=== PATIENT | male | born 1985 | race Caucasian/White ===

== ENCOUNTER 2021-09-04 10:35 | Emergency (ER) | payer OTHER, SELFPAY ==
[2021-09-04 11:28] VITALS: BP 118/63; PULSE 63; RESP 18; TEMP 36.9; O2SAT 99
--- NOTE | 2021-09-04 12:18 | ED.NAVMDI ---
HPI - Nausea/Vomiting/Diarrhea General Chief complaint: Nausea/Vomiting/Diarrhea Stated complaint: Nausea,Fatigue,Diarrhea Source: patient and RN notes reviewed Limitations: no limitations History of Present Illness HPI Narrative: The vaccinated patient, previously healthy [employer], presents with nausea and diarrhea. Patient is here with other sick family members who have diarrhea; he has had nausea and biweekly loose stools [spouse had it 15 times in 1 day]. No fever, vomiting tenesmus, blood, abdominal pain, weight loss, foreign travel, camping-family pet dog has been diagnosed with Giardia. Symptoms are mild slightly worse eating. Related Data Allergies Allergy/AdvReac Type Severity Reaction Status Date / Time No Known Allergies Allergy Verified 09/04/21 12:15 Review of Systems Review of Systems: General/Constitutional: No weight loss,fever Eyes: N0: Redness,discharge Ears/Nose/Throat: No: Epistaxis,ear discharge Respiratory: Denies: Hemoptysis Gastrointestinal: No Vomiting, Bleeding-rectal Skin: No Lumps, eruption Neurologic: No Focal Weakness,Sz Hematologic: Denies: Petechiae/Purpura Psychiatric: No: Suicida ideationl All Other Systems: Reviewed and Negative PMFSH Comments At time of signature, agree with nursing past medical, surgical, social and family history. There is no relevant family history pertinent to the presenting complaint Exam Narrative: General Appearance: Well appearing, No distress, Conjunctiva clear Ears: External ear normal Nose: Normal nose Mouth/Throat: Normal appearing, Normal lips, Supple Respiratory: Airway patent, No respiratory distress Cardiovascular: RRR Abdomen: Soft, Non-tender, No massess, No organomegaly (no rebound/ surgical signs), Hyperactive bowel sounds Musculoskeletal: Full ROM Skin: Warm, Dry Neurological: A&O x3, , Normal affect Course Vital Signs Vital signs: Vital Signs Temperature 98.5 F 09/04/21 11:28 Pulse Rate 63 09/04/21 11:28 Respiratory Rate 18 09/04/21 11:28 Blood Pressure 118/63 09/04/21 11:28 Pulse Oximetry 99 09/04/21 11:28 Temperature 98.5 F 09/04/21 11:28 Pulse Rate 63 09/04/21 11:28 Respiratory Rate 18 09/04/21 11:28 Blood Pressure 118/63 09/04/21 11:28 Pulse Oximetry 99 09/04/21 11:28 Discharge Plan Discharge Clinical Impression: Diarrhea Patient Disposition: Home, Self-Care Condition: Stable Instructions: Acute Diarrhea (ED) Prescriptions: New diphenoxylate-atropine [Lomotil] 2.5-0.025 mg tablet 1 tablet PO QMWF Qty: 10 RF: 5 ondansetron 4 mg tablet,disintegrating 4 mg PO BID Qty: 10 RF: 0 metronidazole 250 mg tablet 250 mg PO Q8H Qty: 20 RF: 0 Other Ambulatory Orders: Giardia EIA (Routine) Timeframe: 1 Day Location: Determined by Patient Ordered By: Antione Yuen Rotavirus Stool (Routine) Timeframe: 1 Day Location: Determined by Patient Ordered By: Antione Yuen Follow-up/Referrals: [place], [Primary Care Provider] -
[2021-09-06 19:46] LABS: SARS-CoV-2 RNA PCR Negative
== END 2021-09-04 12:36 | disposition home or self-care (01) ==
PROVIDERS: Emergency Provider Emergency Medicine
DX: R19.7 Diarrhea, unspecified (principal); Z20.822 Contact with and (suspected) exposure to COVID-19
CPT/HCPCS: 99203; C9803; G0463; U0003; U0005

== ENCOUNTER 2021-09-04 13:32 | Outpatient (CLI) | payer OTHER, SELFPAY ==
[2021-09-10 20:45] LABS: Rotavirus Stool Not Detected
== END 2021-09-04 13:33 | disposition home or self-care (01) ==
LOC: ANHLAB 13:34
PROVIDERS: Visit Provider Emergency Medicine
DX: R19.7 Diarrhea, unspecified (principal)
CPT/HCPCS: 87269; 87425